=== PATIENT | male | born 1940 | race Caucasian/White ===

== ENCOUNTER 2019-04-20 16:16 | Inpatient (IN) ==
[2019-04-20] MEDS ORDERED: DEXTROSE 50% 25 GM/50 ML VIAL IV PRN (19:13)
[2019-04-20] MEDS ORDERED: GLUCAGON 1 MG VIAL IM PRN (19:13)
[2019-04-20] MEDS ORDERED: ENOXAPARIN 150 MG/ML SYRINGE SUBCUT ONE (19:18)
[2019-04-20] MEDS ORDERED: ONDANSETRON 4 MG/2 ML VIAL IV PRN (19:26)
[2019-04-20] MEDS ORDERED: MORPHINE 4 MG/1 ML VIAL IV PRN (19:26)
[2019-04-20 20:08] LABS: CKMB % 3.7 %
[2019-04-20 20:11] LABS: Troponin I 2.34 NG/ML (0.00-0.045)
[2019-04-20] MEDS: METOPROLOL TARTRATE 5 MG/5 ML VIAL IV SCH ×3 (20:17→20:30)
[2019-04-20] MEDS: NITROGLYCERIN 2% OINT 1 INCH/GM PACK TOP SCH (20:21)
[2019-04-20] MEDS: INSULIN LISPRO 100 UNIT/ML SUBCUT SCH (20:34)
[2019-04-21] MEDS: METOPROLOL TARTRATE 5 MG/5 ML VIAL IV SCH ×3 (00:59→12:26)
[2019-04-21] MEDS: NITROGLYCERIN 2% OINT 1 INCH/GM PACK TOP SCH ×2 (00:59→06:01)
[2019-04-21 02:25] LABS: Basophils # 0.1 10*3/uL (0.0-0.2); Basophils % 0.7 % (0.0-0.8); Eosinophils # 0.3 10*3/uL (0.0-0.87); Eosinophils % 3.1 % (0.00-10.9); Hematocrit 35.1 VOL% (42.0-52.0); Hemoglobin 10.5 GM/DL (14.0-18.0); Immature Granulocytes % 0.7 %; Immature Granulocytes Absolute 0.06 #; Lymphocytes # 1.9 10*3/uL (1.4-4.0); Lymphocytes % 21.2 % (21.2-54.2); Mean Corpuscular HGB Conc 29.9 GM/DL (32-36); Mean Corpuscular Volume 81.1 FL (87-102); Mean Platelet Volume 10.6 FL (9.6-12.0); Neutrophils % 61.3 % (38.7-73.9); Platelet Count 270 T/CUMM (130-400); Red Blood Count 4.33 MC/CUMM (3.8-5.5); Red Cell Distribution Width 16.3 % (9.3-17.3)
[2019-04-21 02:45] LABS: Albumin 3.1 G/DL (3.4-5.0); Bilirubin,Total 0.7 MG/DL (0.2-1.0); Calcium 8.7 MG/DL (8.5-10.1); Osmolality,Calculated 289.3 MOS/KG (273-304); Risk Ratio 4.7; Thyroid Stimulating Hormone 2.38 uIU/ml (0.358-3.74); Total Protein 6.5 G/DL (6.4-8.3); VLDL CHOLESTEROL 28.6 MG/DL
[2019-04-21] MEDS: PANTOPRAZOLE 40 MG VIAL IV SCH (08:49)
[2019-04-21] MEDS: INSULIN LISPRO 100 UNIT/ML SUBCUT SCH ×4 (08:49→22:09)
[2019-04-21] MEDS: CLOPIDOGREL 75 MG TABLET PO SCH (10:21)
[2019-04-21] MEDS: METOPROLOL SUCCINATE XL 50 MG TABLET PO SCH (10:21)
[2019-04-21] MEDS: ISOSORBIDE MONONITRATE 30 MG TABLET PO SCH (10:21)
[2019-04-21] MEDS: ASPIRIN EC 81 MG TABLET PO SCH (10:21)
[2019-04-21] MEDS: RANOLAZINE 500 MG TABLET PO SCH ×2 (10:21→22:09)
[2019-04-21] MEDS ORDERED: POTASSIUM CHLORIDE RIDER 10 MEQ in PREMIX 1 EACH IV PRN (13:09)
[2019-04-21] MEDS ORDERED: MAGNESIUM SULF RIDER 2 GM in PREMIX 1 EACH IV PRN (13:09)
[2019-04-21] MEDS ORDERED: ENOXAPARIN 40 MG/0.4 ML SYRINGE SUBCUT SCH (18:00)
[2019-04-21] MEDS: ROSUVASTATIN 20 MG TABLET PO SCH (22:09)
[2019-04-22] MEDS: MORPHINE 4 MG/1 ML VIAL IV PRN (03:56)
[2019-04-22 04:34] LABS: Basophils # 0.1 10*3/uL (0.0-0.2); Basophils % 0.5 % (0.0-0.8); Eosinophils # 0.3 10*3/uL (0.0-0.87); Eosinophils % 2.6 % (0.00-10.9); Immature Granulocytes % 0.8 %; Immature Granulocytes Absolute 0.08 #; Lymphocytes # 1.8 10*3/uL (1.4-4.0); Mean Corpuscular HGB Conc 29.7 GM/DL (32-36); Mean Corpuscular Volume 81.3 FL (87-102); Mean Platelet Volume 10.4 FL (9.6-12.0); Monocytes % 12.5 % (1.7-12.7); Neutrophils % 65.6 % (38.7-73.9); Platelet Count 294 T/CUMM (130-400); Red Blood Count 4.55 MC/CUMM (3.8-5.5); Red Cell Distribution Width 16.7 % (9.3-17.3); White Blood Count 9.9 T/CUMM (4-12)
[2019-04-22 04:48] LABS: Calcium 8.3 MG/DL (8.5-10.1)
[2019-04-22] MEDS: SODIUM CHLORIDE 0.45% 1,000 ML IV SCH ×2 (07:44→10:22)
[2019-04-22] MEDS: INSULIN LISPRO 100 UNIT/ML SUBCUT SCH ×4 (09:02→20:35)
[2019-04-22] MEDS: CLOPIDOGREL 75 MG TABLET PO SCH (09:04)
[2019-04-22] MEDS: ASPIRIN EC 81 MG TABLET PO SCH (09:04)
[2019-04-22] MEDS: ISOSORBIDE MONONITRATE 30 MG TABLET PO SCH (09:04)
[2019-04-22] MEDS: METOPROLOL SUCCINATE XL 50 MG TABLET PO SCH (09:04)
[2019-04-22] MEDS: RANOLAZINE 500 MG TABLET PO SCH ×2 (09:04→20:35)
[2019-04-22] MEDS: PANTOPRAZOLE 40 MG VIAL IV SCH (09:05)
[2019-04-22] MEDS ORDERED: RANOLAZINE 500 MG TABLET PO ONE (09:23)
[2019-04-22] MEDS ORDERED: diphenhydrAMINE CAP 25 MG CAPSULE PO ONE ×2 (12:30→14:00)
[2019-04-22] MEDS ORDERED: DIAZEPAM 5 MG TABLET PO ONE ×2 (12:30→14:00)
[2019-04-22] MEDS ORDERED: VERAPAMIL 5 MG/2 ML VIAL ONE (13:22)
[2019-04-22] MEDS ORDERED: NITROGLYCERIN DRIP 50 MG/250 ML BOTTLE IV ONE (13:22)
[2019-04-22] MEDS ORDERED: MIDAZOLAM 2 MG/2 ML VIAL ONE (13:24)
[2019-04-22] MEDS ORDERED: fentaNYL 100 MCG/2 ML VIAL ONE (13:24)
[2019-04-22] MEDS ORDERED: ENOXAPARIN 60 MG/0.6 ML SYRINGE ONE (13:51)
[2019-04-22] MEDS: FUROSEMIDE 40 MG/4 ML VIAL IV SCH (15:37)
[2019-04-22] MEDS ORDERED: HEPARIN/NACL 0.9% 2 UNITS/ML 1,000 ML IV ONE (16:41)
[2019-04-22] MEDS ORDERED: LIDOCAINE 1% 20 ML VIAL ONE (16:41)
[2019-04-22] MEDS: ENOXAPARIN 150 MG/ML SYRINGE SUBCUT SCH (17:04)
[2019-04-22] MEDS: NITROGLYCERIN 2% OINT 1 INCH/GM PACK TOP SCH ×2 (17:04→23:24)
[2019-04-22] MEDS: ROSUVASTATIN 20 MG TABLET PO SCH (20:35)
[2019-04-23] MEDS: ENOXAPARIN 150 MG/ML SYRINGE SUBCUT SCH ×2 (02:48→16:50)
[2019-04-23] MEDS: NITROGLYCERIN 2% OINT 1 INCH/GM PACK TOP SCH (05:23)
[2019-04-23 05:49] LABS: Basophils # 0.1 10*3/uL (0.0-0.2); Basophils % 0.6 % (0.0-0.8); Eosinophils # 0.2 10*3/uL (0.0-0.87); Eosinophils % 2.7 % (0.00-10.9); Hemoglobin 10.1 GM/DL (14.0-18.0); Immature Granulocytes % 0.9 %; Immature Granulocytes Absolute 0.07 #; Lymphocytes # 1.2 10*3/uL (1.4-4.0); Lymphocytes % 14.2 % (21.2-54.2); Mean Corpuscular HGB Conc 30.6 GM/DL (32-36); Mean Corpuscular Volume 80.1 FL (87-102); Mean Platelet Volume 10.9 FL (9.6-12.0); Monocytes % 12.1 % (1.7-12.7); Neutrophils % 69.5 % (38.7-73.9); Platelet Count 266 T/CUMM (130-400); Red Blood Count 4.12 MC/CUMM (3.8-5.5); Red Cell Distribution Width 16.3 % (9.3-17.3); White Blood Count 8.2 T/CUMM (4-12)
[2019-04-23 06:05] LABS: Calcium 8.4 MG/DL (8.5-10.1); Osmolality,Calculated 294.3 MOS/KG (273-304)
[2019-04-23] MEDS: NITROGLYCERIN SL 0.4 MG TABLET SL PRN ×3 (09:23→09:33)
[2019-04-23] MEDS: CLOPIDOGREL 75 MG TABLET PO SCH (09:56)
[2019-04-23] MEDS: METOPROLOL SUCCINATE XL 50 MG TABLET PO SCH (09:56)
[2019-04-23] MEDS: INSULIN LISPRO 100 UNIT/ML SUBCUT SCH ×4 (09:56→20:59)
[2019-04-23] MEDS: RANOLAZINE 500 MG TABLET PO SCH ×2 (09:56→21:00)
[2019-04-23] MEDS: FUROSEMIDE 40 MG/4 ML VIAL IV SCH ×2 (09:56→16:05)
[2019-04-23] MEDS: ASPIRIN EC 81 MG TABLET PO SCH (09:56)
[2019-04-23] MEDS: PANTOPRAZOLE 40 MG VIAL IV SCH (09:57)
[2019-04-23 10:10] LABS: Albumin 3.1 G/DL (3.4-5.0); Bilirubin,Total 0.9 MG/DL (0.2-1.0); Calcium 8.7 MG/DL (8.5-10.1); Osmolality,Calculated 291.5 MOS/KG (273-304); Total Protein 6.5 G/DL (6.4-8.3)
[2019-04-23] MEDS ORDERED: dilTIAZem Drip 125 MG/125 ML PREMIX IV ONE (10:45)
[2019-04-23] MEDS ORDERED: DILTIAZEM 25 MG/5 ML VIAL IV ONE (10:48)
[2019-04-23] MEDS ORDERED: DILTIAZEM 50 MG/10 ML VIAL IV ONE (11:02)
[2019-04-23] MEDS: dilTIAZem Drip 125 MG/125 ML PREMIX IV SCH ×2 (11:10→22:03)
[2019-04-23] MEDS: MORPHINE 4 MG/1 ML VIAL IV PRN (11:11)
[2019-04-23] MEDS: NITROGLYCERIN DRIP 50 MG/250 ML BOTTLE IV PRN (12:11)
[2019-04-23] MEDS: INSULIN GLARGINE 100 UNIT/ML SUBCUT SCH (20:59)
[2019-04-23] MEDS ORDERED: INSULIN GLARGINE 100 UNIT/ML SUBCUT SCH (21:00)
[2019-04-23] MEDS: ROSUVASTATIN 20 MG TABLET PO SCH (21:00)
[2019-04-24] MEDS: ENOXAPARIN 150 MG/ML SYRINGE SUBCUT SCH ×2 (03:14→15:29)
[2019-04-24 04:35] LABS: Basophils # 0.1 10*3/uL (0.0-0.2); Basophils % 0.6 % (0.0-0.8); Eosinophils # 0.2 10*3/uL (0.0-0.87); Eosinophils % 2.1 % (0.00-10.9); Hematocrit 34.2 VOL% (42.0-52.0); Hemoglobin 10.5 GM/DL (14.0-18.0); Immature Granulocytes % 0.7 %; Immature Granulocytes Absolute 0.07 #; Lymphocytes # 1.2 10*3/uL (1.4-4.0); Lymphocytes % 11.8 % (21.2-54.2); Mean Corpuscular HGB Conc 30.7 GM/DL (32-36); Mean Corpuscular Volume 79.4 FL (87-102); Mean Platelet Volume 10.6 FL (9.6-12.0); Monocytes % 13.3 % (1.7-12.7); Neutrophils % 71.5 % (38.7-73.9); Platelet Count 280 T/CUMM (130-400); Red Blood Count 4.31 MC/CUMM (3.8-5.5); Red Cell Distribution Width 16.6 % (9.3-17.3); White Blood Count 10.2 T/CUMM (4-12)
[2019-04-24 04:59] LABS: Calcium 8.5 MG/DL (8.5-10.1); Osmolality,Calculated 293.4 MOS/KG (273-304)
[2019-04-24] MEDS ORDERED: diphenhydrAMINE CAP 25 MG CAPSULE PO ONE (07:29)
[2019-04-24] MEDS ORDERED: MAGNESIUM SULF RIDER 2 GM in PREMIX 1 EACH IV PRN (07:29)
[2019-04-24] MEDS ORDERED: DIAZEPAM 5 MG TABLET PO ONE (07:29)
[2019-04-24] MEDS: FUROSEMIDE 40 MG/4 ML VIAL IV SCH ×2 (08:56→15:29)
[2019-04-24] MEDS: INSULIN LISPRO 100 UNIT/ML SUBCUT SCH ×4 (08:56→20:47)
[2019-04-24] MEDS: PANTOPRAZOLE 40 MG VIAL IV SCH (08:57)
[2019-04-24] MEDS: RANOLAZINE 500 MG TABLET PO SCH ×2 (08:57→20:48)
[2019-04-24] MEDS: METOPROLOL SUCCINATE XL 50 MG TABLET PO SCH (08:57)
[2019-04-24] MEDS: ASPIRIN EC 81 MG TABLET PO SCH (08:57)
[2019-04-24] MEDS: CLOPIDOGREL 75 MG TABLET PO SCH (08:57)
[2019-04-24] MEDS: dilTIAZem Drip 125 MG/125 ML PREMIX IV SCH ×2 (12:55→16:21)
[2019-04-24] MEDS: DEXTROSE 5% NACL 0.45% 1,000 ML IV SCH (19:28)
[2019-04-24] MEDS: INSULIN GLARGINE 100 UNIT/ML SUBCUT SCH (20:47)
[2019-04-24] MEDS: ROSUVASTATIN 20 MG TABLET PO SCH (20:48)
[2019-04-25] MEDS: ENOXAPARIN 150 MG/ML SYRINGE SUBCUT SCH (04:20)
[2019-04-25 05:42] LABS: Basophils % 0.4 % (0.0-0.8); Eosinophils # 0.2 10*3/uL (0.0-0.87); Eosinophils % 2.3 % (0.00-10.9); Hematocrit 33.1 VOL% (42.0-52.0); Hemoglobin 10.1 GM/DL (14.0-18.0); Immature Granulocytes % 0.6 %; Immature Granulocytes Absolute 0.06 #; Lymphocytes # 1.2 10*3/uL (1.4-4.0); Lymphocytes % 12.6 % (21.2-54.2); Mean Corpuscular HGB Conc 30.5 GM/DL (32-36); Mean Corpuscular Volume 78.6 FL (87-102); Mean Platelet Volume 10.6 FL (9.6-12.0); Monocytes % 13.5 % (1.7-12.7); Neutrophils % 70.6 % (38.7-73.9); Platelet Count 276 T/CUMM (130-400); Red Blood Count 4.21 MC/CUMM (3.8-5.5); Red Cell Distribution Width 16.3 % (9.3-17.3); White Blood Count 9.3 T/CUMM (4-12)
[2019-04-25 06:21] LABS: Calcium 8.4 MG/DL (8.5-10.1); Osmolality,Calculated 288.8 MOS/KG (273-304)
[2019-04-25] MEDS: POTASSIUM CHLORIDE RIDER 10 MEQ in PREMIX 1 EACH IV PRN ×2 (07:19→08:22)
[2019-04-25] MEDS ORDERED: diphenhydrAMINE CAP 25 MG CAPSULE PO ONE (07:30)
[2019-04-25] MEDS ORDERED: DIAZEPAM 5 MG TABLET PO ONE (07:30)
[2019-04-25] MEDS: METOPROLOL SUCCINATE XL 50 MG TABLET PO SCH (07:50)
[2019-04-25] MEDS: INSULIN LISPRO 100 UNIT/ML SUBCUT SCH ×4 (07:50→20:16)
[2019-04-25] MEDS: ASPIRIN EC 81 MG TABLET PO SCH (08:02)
[2019-04-25] MEDS ORDERED: LIDOCAINE 1%/EPI INJ 20 ML VIAL ONE (08:16)
[2019-04-25] MEDS ORDERED: HEPARIN/NACL 0.9% 2 UNITS/ML 1,000 ML IV ONE (08:16)
[2019-04-25] MEDS: DEXTROSE 5% NACL 0.45% 1,000 ML IV SCH (08:24)
[2019-04-25] MEDS: dilTIAZem Drip 125 MG/125 ML PREMIX IV SCH ×2 (08:26→19:05)
[2019-04-25] MEDS ORDERED: MIDAZOLAM 2 MG/2 ML VIAL ONE (08:42)
[2019-04-25] MEDS ORDERED: fentaNYL 100 MCG/2 ML VIAL ONE (08:43)
[2019-04-25] MEDS ORDERED: TIROFIBAN 5,000 MCG/100 ML PREMIX IV ONE (09:14)
[2019-04-25] MEDS ORDERED: ENOXAPARIN 60 MG/0.6 ML SYRINGE ONE (09:16)
[2019-04-25] MEDS ORDERED: TIROFIBAN 5,000 MCG/100 ML PREMIX IV SCH (09:23)
[2019-04-25] MEDS ORDERED: CLOPIDOGREL 300 MG TABLET ONE (09:33)
[2019-04-25] MEDS: FUROSEMIDE 40 MG/4 ML VIAL IV SCH ×2 (10:43→16:13)
[2019-04-25] MEDS: RANOLAZINE 500 MG TABLET PO SCH ×2 (10:43→20:16)
[2019-04-25] MEDS: PANTOPRAZOLE 40 MG VIAL IV SCH (10:45)
[2019-04-25] MEDS: CLOPIDOGREL 75 MG TABLET PO SCH (10:48)
[2019-04-25] MEDS ORDERED: INFLUENZA VIRUS VACCINE 0.5 ML SYRINGE IM ONE (11:05)
[2019-04-25] MEDS: NITROGLYCERIN DRIP 50 MG/250 ML BOTTLE IV PRN (15:15)
[2019-04-25] MEDS: ROSUVASTATIN 20 MG TABLET PO SCH (20:16)
[2019-04-25] MEDS: INSULIN GLARGINE 100 UNIT/ML SUBCUT SCH (20:16)
[2019-04-26] MEDS: dilTIAZem Drip 125 MG/125 ML PREMIX IV SCH ×2 (02:53→11:09)
[2019-04-26 05:16] LABS: Basophils # 0.1 10*3/uL (0.0-0.2); Basophils % 0.5 % (0.0-0.8); Eosinophils # 0.2 10*3/uL (0.0-0.87); Eosinophils % 1.9 % (0.00-10.9); Hematocrit 32.8 VOL% (42.0-52.0); Hemoglobin 10.2 GM/DL (14.0-18.0); Immature Granulocytes % 0.5 %; Immature Granulocytes Absolute 0.05 #; Lymphocytes % 11.3 % (21.2-54.2); Mean Corpuscular HGB Conc 31.1 GM/DL (32-36); Mean Corpuscular Volume 77.9 FL (87-102); Mean Platelet Volume 10.5 FL (9.6-12.0); Monocytes % 14.1 % (1.7-12.7); Neutrophils % 71.7 % (38.7-73.9); Platelet Count 276 T/CUMM (130-400); Red Blood Count 4.21 MC/CUMM (3.8-5.5); Red Cell Distribution Width 16.1 % (9.3-17.3); White Blood Count 9.1 T/CUMM (4-12)
[2019-04-26 05:33] LABS: Calcium 8.6 MG/DL (8.5-10.1); Osmolality,Calculated 278.4 MOS/KG (273-304)
[2019-04-26] MEDS: INSULIN LISPRO 100 UNIT/ML SUBCUT SCH ×4 (08:47→20:15)
[2019-04-26] MEDS: CLOPIDOGREL 75 MG TABLET PO SCH (08:48)
[2019-04-26] MEDS: METOPROLOL SUCCINATE XL 50 MG TABLET PO SCH (08:48)
[2019-04-26] MEDS: SACUBITRIL/VALSARTAN 49-51 MG TABLET PO SCH ×2 (08:49→20:16)
[2019-04-26] MEDS: RANOLAZINE 500 MG TABLET PO SCH ×2 (08:49→20:15)
[2019-04-26] MEDS: FUROSEMIDE 40 MG/4 ML VIAL IV SCH ×2 (08:50→16:17)
[2019-04-26] MEDS: PANTOPRAZOLE 40 MG VIAL IV SCH (08:54)
[2019-04-26] MEDS: APIXABAN 5 MG TABLET PO SCH ×2 (09:01→20:16)
[2019-04-26] MEDS: INSULIN GLARGINE 100 UNIT/ML SUBCUT SCH (20:15)
[2019-04-26] MEDS: ROSUVASTATIN 20 MG TABLET PO SCH (20:16)
[2019-04-27 04:15] VITALS: BP 109/67
[2019-04-27 06:00] LABS: Basophils # 0.1 10*3/uL (0.0-0.2); Basophils % 0.6 % (0.0-0.8); Eosinophils # 0.2 10*3/uL (0.0-0.87); Eosinophils % 1.8 % (0.00-10.9); Hematocrit 36.4 VOL% (42.0-52.0); Hemoglobin 11.2 GM/DL (14.0-18.0); Immature Granulocytes % 0.5 %; Immature Granulocytes Absolute 0.04 #; Lymphocytes # 1.1 10*3/uL (1.4-4.0); Lymphocytes % 12.7 % (21.2-54.2); Mean Corpuscular HGB Conc 30.8 GM/DL (32-36); Mean Corpuscular Volume 77.8 FL (87-102); Mean Platelet Volume 10.8 FL (9.6-12.0); Neutrophils % 71.4 % (38.7-73.9); Platelet Count 292 T/CUMM (130-400); Red Blood Count 4.68 MC/CUMM (3.8-5.5); Red Cell Distribution Width 16.4 % (9.3-17.3); White Blood Count 8.5 T/CUMM (4-12)
[2019-04-27 06:22] LABS: Calcium 8.8 MG/DL (8.5-10.1); Osmolality,Calculated 278.5 MOS/KG (273-304)
[2019-04-27] MEDS: INSULIN LISPRO 100 UNIT/ML SUBCUT SCH ×2 (08:26→11:00)
[2019-04-27] MEDS: APIXABAN 5 MG TABLET PO SCH (08:27)
[2019-04-27] MEDS: POTASSIUM CHLORIDE 20 MEQ TABLET PO PRN ×3 (08:27→15:01)
[2019-04-27] MEDS: RANOLAZINE 500 MG TABLET PO SCH (08:27)
[2019-04-27] MEDS: FUROSEMIDE 40 MG TABLET PO SCH ×2 (08:27→15:00)
[2019-04-27] MEDS: SACUBITRIL/VALSARTAN 49-51 MG TABLET PO SCH (08:27)
[2019-04-27] MEDS: METOPROLOL SUCCINATE XL 50 MG TABLET PO SCH (08:28)
[2019-04-27] MEDS: PANTOPRAZOLE 40 MG VIAL IV SCH (08:28)
[2019-04-27] MEDS: CLOPIDOGREL 75 MG TABLET PO SCH (08:28)
== END 2019-04-27 15:12 | disposition home or self-care (01) | DRG 246 ==
LOC: SUATTDRO 17:33 → N.TELES 17:33 → N.ICU 04-23 11:46
PROVIDERS: ADMIT Internal Medicine; ATTEND Internal Medicine
PROC: CLCCHCL (ICD-10-PCS; 2019-04-22 13:15)

== ENCOUNTER 2019-08-13 12:23 | Inpatient (IN) ==
[2019-08-13] MEDS ORDERED: MORPHINE 4 MG/1 ML VIAL IV STA (12:57)
[2019-08-13] MEDS ORDERED: ONDANSETRON 4 MG/2 ML VIAL IV STA (12:57)
[2019-08-13] MEDS: NITROGLYCERIN SL 0.4 MG TABLET SL PRN (13:02)
[2019-08-13 13:06] LABS: Basophils # 0.1 10*3/uL (0.0-0.2); Basophils % 0.5 % (0.0-0.8); Eosinophils # 0.1 10*3/uL (0.0-0.87); Eosinophils % 0.4 % (0.00-10.9); Hematocrit 32.1 VOL% (42.0-52.0); Hemoglobin 9.4 GM/DL (14.0-18.0); Immature Granulocytes % 0.9 %; Immature Granulocytes Absolute 0.12 #; Lymphocytes # 1.4 10*3/uL (1.4-4.0); Lymphocytes % 10.1 % (21.2-54.2); Mean Corpuscular HGB Conc 29.3 GM/DL (32-36); Mean Corpuscular Volume 74.5 FL (87-102); Mean Platelet Volume 9.8 FL (9.6-12.0); Monocytes % 11.7 % (1.7-12.7); Neutrophils % 76.4 % (38.7-73.9); Platelet Count 380 T/CUMM (130-400); Red Blood Count 4.31 MC/CUMM (3.8-5.5); Red Cell Distribution Width 16.8 % (9.3-17.3); White Blood Count 13.4 T/CUMM (4-12)
[2019-08-13 13:22] LABS: Albumin 3.5 G/DL (3.4-5.0); Calcium 9.3 MG/DL (8.5-10.1); Osmolality,Calculated 274.7 MOS/KG (273-304); Total Protein 7.4 G/DL (6.4-8.3)
[2019-08-13 13:36] LABS: INR 1.1; PT Patient Result 11.4 SECS (9.8-11.9)
[2019-08-13] MEDS ORDERED: ASPIRIN 325 MG TABLET ONE (13:43)
[2019-08-13] MEDS ORDERED: POTASSIUM CHLORIDE RIDER 10 MEQ in PREMIX 1 EACH IV PRN (13:52)
[2019-08-13] MEDS ORDERED: DIAZEPAM 5 MG TABLET PO ONE (13:52)
[2019-08-13] MEDS ORDERED: diphenhydrAMINE CAP 25 MG CAPSULE PO ONE (13:52)
[2019-08-13] MEDS ORDERED: MAGNESIUM SULF RIDER 2 GM in PREMIX 1 EACH IV PRN (13:52)
[2019-08-13] MEDS ORDERED: ASPIRIN 325 MG TABLET PO STA (13:54)
[2019-08-13] MEDS ORDERED: ZALEPLON 5 MG CAPSULE PO PRN (14:13)
[2019-08-13] MEDS ORDERED: DOCUSATE SODIUM 100 MG CAPSULE PO PRN (14:13)
[2019-08-13] MEDS ORDERED: ONDANSETRON 4 MG/2 ML VIAL IV PRN (14:13)
[2019-08-13] MEDS ORDERED: ALUMINUM/MAGNES/SIMETH MAX STR 30 ML UDCUP PO PRN (14:13)
[2019-08-13] MEDS ORDERED: GLUCAGON 1 MG VIAL IM PRN (14:13)
[2019-08-13] MEDS ORDERED: DEXTROSE 50% 25 GM/50 ML VIAL IV PRN (14:13)
[2019-08-13] MEDS ORDERED: LIDOCAINE 1% 20 ML VIAL ONE (14:17)
[2019-08-13] MEDS ORDERED: HYDROmorphone 2 MG/1 ML VIAL ONE (14:23)
[2019-08-13] MEDS ORDERED: MIDAZOLAM 2 MG/2 ML VIAL ONE (14:23)
[2019-08-13] MEDS ORDERED: VERAPAMIL 5 MG/2 ML VIAL ONE (14:28)
[2019-08-13] MEDS ORDERED: NITROGLYCERIN DRIP 50 MG/250 ML BOTTLE IV ONE (14:28)
[2019-08-13] MEDS: SODIUM CHLORIDE 0.9% 1,000 ML IV SCH (14:28)
[2019-08-13] MEDS ORDERED: TIROFIBAN 5,000 MCG/100 ML PREMIX IV ONE (15:06)
[2019-08-13] MEDS: TIROFIBAN 5,000 MCG/100 ML PREMIX IV SCH (15:15)
[2019-08-13] MEDS ORDERED: CLOPIDOGREL 300 MG TABLET ONE (15:28)
[2019-08-13] MEDS ORDERED: ENOXAPARIN 60 MG/0.6 ML SYRINGE ONE ×2 (15:32)
[2019-08-13] MEDS ORDERED: METOPROLOL TARTRATE 25 MG TABLET PO ONE (15:47)
[2019-08-13 16:33] LABS: CKMB % 12.4 %
[2019-08-13 16:38] LABS: Troponin I 18.1 NG/ML (0.00-0.045)
[2019-08-13] MEDS: ROSUVASTATIN 20 MG TABLET PO SCH (16:39)
[2019-08-13] MEDS: INSULIN REGULAR 100 UNIT/ML SUBCUT SCH ×2 (16:39→21:10)
[2019-08-13] MEDS: INSULIN LISPRO 100 UNIT/ML SUBCUT SCH (16:39)
[2019-08-13] MEDS: METOPROLOL TARTRATE 25 MG TABLET PO SCH (20:50)
[2019-08-13] MEDS: RANOLAZINE 500 MG TABLET PO SCH (20:51)
[2019-08-13] MEDS: MECLIZINE 25 MG TABLET PO SCH (20:51)
[2019-08-13] MEDS: GABAPENTIN 300 MG CAPSULE PO SCH (20:52)
[2019-08-14] MEDS: TIROFIBAN 5,000 MCG/100 ML PREMIX IV SCH (00:10)
[2019-08-14 01:10] LABS: Apearance,Urine CLEAR (Clear); Bilirubin,Urine Negative (Negative); Blood, Urine Negative (Negative); Glucose,Urine (UA) 50 mg/dL (Negative); Ketones,Urine 5 mg/dL (Negative); Mucus,Urine Occasional /LPF (Occasional); Nitrite,Urine Negative (Negative); Protein,Urine Negative; RBC,Urine 7 /HPF (0-4); Squamous Epithelial Cell,Urine Occasional /HPF (0-10); Urine Color Yellow (Yellow); Urine Specific Gravity > 1.060 (1.001-1.035); Urine Urobilinogen < 2.0 EU/DL (0.2-1.0)
[2019-08-14] MEDS: NITROGLYCERIN SL 0.4 MG TABLET SL PRN ×2 (02:49→05:23)
[2019-08-14] MEDS: SODIUM CHLORIDE 0.9% 1,000 ML IV SCH (03:05)
[2019-08-14] MEDS ORDERED: HYDROmorphone 2 MG/1 ML VIAL IV ONE (05:50)
[2019-08-14] MEDS ORDERED: FUROSEMIDE 40 MG/4 ML VIAL IV ONE (05:52)
[2019-08-14] MEDS ORDERED: ALBUTEROL/IPRATROPIUM 3 ML NEB RESP TX STA (06:01)
[2019-08-14 06:32] LABS: Calcium 8.6 MG/DL (8.5-10.1); Osmolality,Calculated 277.1 MOS/KG (273-304)
[2019-08-14 06:59] LABS: CKMB % 7.1 %
[2019-08-14 07:07] LABS: Troponin I 42.2 NG/ML (0.00-0.045)
[2019-08-14] MEDS: INSULIN REGULAR 100 UNIT/ML SUBCUT SCH ×4 (07:21→20:50)
[2019-08-14] MEDS ORDERED: INSULIN LISPRO 100 UNIT/ML SUBCUT SCH (07:30)
[2019-08-14] MEDS ORDERED: ENOXAPARIN 150 MG/ML SYRINGE SUBCUT ONE (08:00)
[2019-08-14] MEDS: RANOLAZINE 500 MG TABLET PO SCH ×2 (08:16→20:49)
[2019-08-14] MEDS: GABAPENTIN 300 MG CAPSULE PO SCH ×3 (08:16→20:50)
[2019-08-14] MEDS: ROSUVASTATIN 20 MG TABLET PO SCH (08:16)
[2019-08-14] MEDS: MECLIZINE 25 MG TABLET PO SCH ×2 (08:16→20:50)
[2019-08-14] MEDS: METOPROLOL TARTRATE 25 MG TABLET PO SCH (08:17)
[2019-08-14 08:58] LABS: Basophils # 0.1 10*3/uL (0.0-0.2); Basophils % 0.4 % (0.0-0.8); Eosinophils % 0.1 % (0.00-10.9); Hematocrit 30.4 VOL% (42.0-52.0); Immature Granulocytes % 0.9 %; Immature Granulocytes Absolute 0.15 #; Lymphocytes # 1.1 10*3/uL (1.4-4.0); Lymphocytes % 6.6 % (21.2-54.2); Mean Corpuscular HGB Conc 29.3 GM/DL (32-36); Mean Corpuscular Volume 74.3 FL (87-102); Mean Platelet Volume 11.2 FL (9.6-12.0); Monocytes % 11.9 % (1.7-12.7); NRBC # 0.02 10*3/uL; Neutrophils % 80.1 % (38.7-73.9); Red Blood Count 4.09 MC/CUMM (3.8-5.5); Red Cell Distribution Width 17.1 % (9.3-17.3); White Blood Count 15.9 T/CUMM (4-12)
[2019-08-14 09:00] LABS: Hemoglobin 8.9 GM/DL (14.0-18.0)
[2019-08-14] MEDS ORDERED: BACLOFEN 10 MG TABLET PO SCH (09:00)
[2019-08-14] MEDS ORDERED: ISOSORBIDE MONONITRATE 30 MG TABLET PO SCH (09:00)
[2019-08-14] MEDS ORDERED: CLOPIDOGREL 75 MG TABLET PO SCH (09:00)
[2019-08-14 09:03] LABS: Platelet Count 66 T/CUMM (130-400)
[2019-08-14] MEDS ORDERED: ASPIRIN EC 81 MG TABLET PO SCH (09:59)
[2019-08-14] MEDS: METOPROLOL SUCCINATE XL 25 MG TABLET PO SCH ×2 (10:09→20:51)
[2019-08-14] MEDS: INSULIN LISPRO 100 UNIT/ML SUBCUT SCH (16:55)
[2019-08-14] MEDS ORDERED: SACUBITRIL/VALSARTAN 49-51 MG TABLET PO SCH (21:00)
[2019-08-14] MEDS ORDERED: SODIUM CHLORIDE 0.9% 250 ML IV ONE ×2 (22:28→23:16)
[2019-08-14] MEDS ORDERED: SODIUM CHLORIDE 0.9% 1,000 ML IV SCH (22:30)
[2019-08-14] MEDS ORDERED: SULFAMETHOX/TRIMETHOPRIM 400-80 MG TABLET PO SCH (23:00)
[2019-08-14] MEDS ORDERED: SULFAMETHOX/TRIMETHOPRIM 800-160 MG TABLET PO SCH (23:00)
[2019-08-14] MEDS ORDERED: cefTRIAXone 1,000 MG in SYRINGE 1 EACH IV SCH (23:00)
[2019-08-14] MEDS: DOPamine 800 MG/250 ML PREMIX IV PRN (23:25)
[2019-08-14] MEDS ORDERED: ETOMIDATE 20 MG/10 ML VIAL IV ONE (23:39)
[2019-08-14] MEDS ORDERED: SUCCINYLCHOLINE 200 MG/10 ML VIAL ONE (23:44)
[2019-08-14] MEDS ORDERED: PHENYLEPHRINE DRIP 40 MG/250 ML PREMIX IV ONE (23:50)
[2019-08-14] MEDS: PHENYLEPHRINE DRIP 40 MG/250 ML PREMIX IV PRN (23:55)
[2019-08-15 00:42] LABS: ABG Base Excess -7.1 MMOL/L (-2.5-2.5); ABG HCO3 18.6 MMOL/L (20-26); ABG Oxygen Saturation 93.8 % (95-100); ABG PCO2 48.7 MM HG (35-48); ABG PH 7.229 (7.35-7.45); ABG PO2 86.7 MM HG (80-95); ABG TCO2 19.4 MMOL/L (23-27)
[2019-08-15] MEDS ORDERED: PHENYLEPHRINE DRIP 40 MG/250 ML PREMIX IV ONE (00:56)
[2019-08-15 01:04] LABS: Basophils # 0.1 10*3/uL (0.0-0.2); Basophils % 0.3 % (0.0-0.8); Eosinophils % 0.2 % (0.00-10.9); Hematocrit 27.3 VOL% (42.0-52.0); Hemoglobin 7.9 GM/DL (14.0-18.0); Immature Granulocytes % 1.5 %; Lymphocytes # 3.8 10*3/uL (1.4-4.0); Lymphocytes % 18.5 % (21.2-54.2); Mean Corpuscular HGB Conc 28.9 GM/DL (32-36); Mean Platelet Volume 10.8 FL (9.6-12.0); Monocytes % 16.3 % (1.7-12.7); NRBC # 0.05 10*3/uL; Neutrophils % 63.2 % (38.7-73.9); Platelet Count 101 T/CUMM (130-400); Red Blood Count 3.64 MC/CUMM (3.8-5.5); Red Cell Distribution Width 17.2 % (9.3-17.3); White Blood Count 20.3 T/CUMM (4-12)
[2019-08-15] MEDS ORDERED: fentaNYL INJ 1,250 MCG in SODIUM CHLORIDE 0.9% 225 ML IV PRN (01:08)
[2019-08-15 01:42] LABS: Albumin 2.8 G/DL (3.4-5.0); Bilirubin,Total 0.9 MG/DL (0.2-1.0); CKMB % 2.2 %; Calcium 8.3 MG/DL (8.5-10.1); Osmolality,Calculated 273.7 MOS/KG (273-304); Total Protein 6.5 G/DL (6.4-8.3)
[2019-08-15 01:44] LABS: Troponin I 43.2 NG/ML (0.00-0.045)
[2019-08-15] MEDS ORDERED: SODIUM CHLORIDE 0.9% 1,000 ML IV SCH (01:45)
[2019-08-15] MEDS: PHENYLEPHRINE DRIP 40 MG/250 ML PREMIX IV PRN ×3 (01:57→06:08)
[2019-08-15 02:09] LABS: Lymphocytes 16 % (20-55); Platelet Estimate Normal; Segmented Neutrophils 69 % (50-85); Total Cells Counted 100
[2019-08-15 02:10] LABS: Hypochromasia 2+; Microcytosis 3+
[2019-08-15 02:11] LABS: Polychromasia Few; Stomatocytes Slight
[2019-08-15 02:12] LABS: Ovalocytes Slight
[2019-08-15] MEDS ORDERED: ETOMIDATE 20 MG/10 ML VIAL IV ONE (04:09)
[2019-08-15] MEDS ORDERED: VECURONIUM 10 MG VIAL IV ONE (04:09)
[2019-08-15] MEDS: DOPamine 800 MG/250 ML PREMIX IV PRN (04:49)
[2019-08-15] MEDS ORDERED: PHENYLEPHRINE INJ 160 MG in SODIUM CHLORIDE 0.9% 234 ML IV PRN (05:38)
[2019-08-15] MEDS ORDERED: fentaNYL INJ 2,500 MCG in SODIUM CHLORIDE 0.9% 450 ML IV PRN (05:51)
[2019-08-15 07:00] LABS: ABG Base Excess -11.4 MMOL/L (-2.5-2.5); ABG HCO3 15.4 MMOL/L (20-26); ABG Oxygen Saturation 99.5 % (95-100); ABG PCO2 35.5 MM HG (35-48); ABG TCO2 14.4 MMOL/L (23-27)
[2019-08-15 07:17] LABS: Basophils # 0.1 10*3/uL (0.0-0.2); Basophils % 0.3 % (0.0-0.8); Hematocrit 28.6 VOL% (42.0-52.0); Hemoglobin 8.3 GM/DL (14.0-18.0); Immature Granulocytes Absolute 0.82 #; Lymphocytes # 1.6 10*3/uL (1.4-4.0); Lymphocytes % 7.6 % (21.2-54.2); Mean Corpuscular Volume 74.9 FL (87-102); Mean Platelet Volume 11.7 FL (9.6-12.0); Monocytes % 15.6 % (1.7-12.7); NRBC # 0.09 10*3/uL; Neutrophils % 72.5 % (38.7-73.9); Platelet Count 115 T/CUMM (130-400); Red Blood Count 3.82 MC/CUMM (3.8-5.5); Red Cell Distribution Width 17.1 % (9.3-17.3); White Blood Count 20.4 T/CUMM (4-12)
[2019-08-15] MEDS ORDERED: NOREPINEPHRINE 4 MG/4 ML VIAL IV ONE (07:38)
[2019-08-15] MEDS ORDERED: CALCIUM GLUCONATE 1,000 MG in SODIUM CHLORIDE 0.9% 100 ML IV ONE (07:40)
[2019-08-15] MEDS ORDERED: SODIUM POLYSTYRENE SULFATE 15 GM/60 ML BOTTLE PO ONE (07:41)
[2019-08-15] MEDS ORDERED: CALCIUM GLUCONATE 1,000 MG/10 ML VIAL IV ONE (07:54)
[2019-08-15] MEDS ORDERED: DOPamine 800 MG in DEXTROSE 5% 230 ML IV PRN (08:00)
[2019-08-15] MEDS ORDERED: HYDROCORTISONE 100 MG VIAL IV SCH (08:00)
[2019-08-15 08:17] LABS: Band Neutrophils 1 % (0-10); Lymphocytes 8 % (20-55); Nucleated Red Blood Cells 1 (0-5); Segmented Neutrophils 78 % (50-85); Total Cells Counted 100
[2019-08-15 08:18] LABS: Hypochromasia 1+; Microcytosis 1+; Ovalocytes Slight; Platelet Estimate Decreased
[2019-08-15 08:24] VITALS: BP 38/28
== END 2019-08-15 08:20 | disposition expired | DRG 246 ==
LOC: N.EDINP 12:23 → N.TELEN 12:23 → N.ED 12:23 → N.TELEN 14:30 → N.CLINP 14:47
PROVIDERS: ADMIT Internal Medicine Cardiovascular Disease; ATTEND Internal Medicine Cardiovascular Disease